=== PATIENT | female | born 1935 | race Caucasian/White ===

== ENCOUNTER 2017-04-01 08:40 | Outpatient (CLI) | payer MEDICARE, MEDICAID ==
[2017-04-01] VITALS (7 sets, daily range): BP systolic 129–139; BP diastolic 62–84; PULSE 82–97; TEMP 98.4–98.6
[~2017-04-01] VITALS: Ht 162.6 cm; Wt 56.8 kg
[~2017-04-01 08:40] MED LIST: ASPIRIN E.C. 8181 MG PO; BENTYL 10MG10 MG/CAP PO; CALCIUM 500 + D1 TA2 PO; CELEBREX 200MG200 MG PO; COUMADIN 5MG5 MG/TAB PO; COUMADIN 6MG6 MG/TAB PO; CRESTOR 10MG10 MG PO; CYMBALTA 30MG30 MG PO; CYMBALTA 60MG60 MG PO; FERROUS SULFAT325 M2 PO; FOSAMAX 70MG TA70 MG PO; GLUCOTROL 5M5 MG/TAB PO; LASIX 40MG TABL40 MG PO; LORTAB 5/500 501 TAB PO; MULTIPLE VITAMI1 TA5 PO; NEURONTIN100 MG/CAP PO; NEURONTIN300 MG/CAP PO; NEXIUM 40MG40 MG PO; NORCO 325 MG-7.1 TAB PO; NORVASC 5MG5 MG/TAB PO; SYNTHROID0.088 MG/T PO; TYLENOL 500MG500 MG PO; VANDAZOLE 0.75%70 GM VG; VITAMIN B-1000 MCG/T PO; ZESTRIL 10MG10 MG PO; ZETIA 10MG TAB10 MG PO
[2017-04-01] MEDS ORDERED: JANUVIA 100MG100 MG PO (09:42)
[2017-04-01] MEDS ORDERED: SYNTHROID0.1 MG/TAB PO (09:43)
[2017-04-01] MEDS ORDERED: GLUCOPHAGE500 MG/TAB PO (09:44)
[2017-04-01 10:05] LABS: MEAN CELL VOLUME 89 fl (80.0-100.0); MEAN CORPUSCULAR HGB CONC 32 g/dl (33.0-37.0); MEAN PLATELET VOLUME 9.4 fl (7.4-10.4); PLATELET COUNT 811 K/mm3 (130-400); RED BLOOD COUNT 3.78 M/mm3 (4.10-5.30); REDCELL DISTRIBUTION WIDTH-CV 16.7 % (11.5-14.5)
[2017-04-01] MEDS ORDERED: MIRALAX PA17 GM/Dose PO (10:12)
[2017-04-01] MEDS ORDERED: VESICARE10 MG PO (10:14)
[2017-04-01 10:15] LABS: HEMATOCRIT 33.5 % (37.0-47.0); HEMOGLOBIN 10.7 g/dl (12.5-16.0); MEAN CORPUSCULAR HEMOGLOBIN 28 pg (27.0-31.0); WHITE BLOOD COUNT 24.9 K/mm3 (4.8-10.8)
[2017-04-01] MEDS ORDERED: COUMADIN4 MG PO (10:16)
[2017-04-01] MEDS ORDERED: COUMADIN 2MG2 MG/TAB PO (10:16)
[2017-04-01 10:17] LABS: ADD PATHOLOGY DIFF REVIEW NO
[2017-04-01 11:27] LABS: BAND 19 % (0-10); BASOPHIL 1 % (0-2); NEUTROPHILS 70 % (42.0-75.2); TOTAL CELLS COUNTED 100
[2017-04-01 11:28] LABS: TOXIC GRANULATION PRESENT
[2017-04-01 11:31] LABS: PLATELET ESTIMATE INCREASED (NORMAL)
[2017-04-01 11:32] LABS: HYPOCHROMIA 2+
== END 2017-04-01 13:00 | disposition home or self-care (01) ==
LOC: SDCO 08:40
PROVIDERS: Pathology Anatomic Pathology & Clinical Pathology
DX: D47.3 Essential (hemorrhagic) thrombocythemia (principal); D64.9 Anemia, unspecified; D72.89 Other specified disorders of white blood cells; E11.9 Type 2 diabetes mellitus without complications; C91.10 Chronic lymphocytic leukemia of B-cell type not having achieved remission; E03.9 Hypothyroidism, unspecified; E78.5 Hyperlipidemia, unspecified; I38 Endocarditis, valve unspecified; I10 Essential (primary) hypertension; Z80.49 Family history of malignant neoplasm of other genital organs; I35.0 Nonrheumatic aortic (valve) stenosis; Z85.3 Personal history of malignant neoplasm of breast; Z92.21 Personal history of antineoplastic chemotherapy; Z90.10 Acquired absence of unspecified breast and nipple; G89.29 Other chronic pain; M54.5 Low back pain; R10.2 Pelvic and perineal pain; R63.4 Abnormal weight loss; Z79.01 Long term (current) use of anticoagulants
CPT/HCPCS: J2704; J3010

== ENCOUNTER 2017-04-11 16:02 | Inpatient (IN) | payer MEDICARE, MEDICAID ==
[~2017-04-11] VITALS: Ht 165.1 cm; Wt 57.1 kg
[~2017-04-11 16:02] MED LIST changes: +COUMADIN 2MG2 MG/TAB PO; +COUMADIN4 MG PO; +GLUCOPHAGE500 MG/TAB PO; +JANUVIA 100MG100 MG PO; +MIRALAX PA17 GM/Dose PO; +SYNTHROID0.1 MG/TAB PO; +VESICARE10 MG PO
[2017-04-11 16:55] VITALS: BP 123/50; PULSE 89; TEMP 98.2
[2017-04-11 20:03] VITALS: BP 145/87; PULSE 98; TEMP 99.3
[2017-04-11 20:40] LABS: MEAN CELL VOLUME 87 fl (80.0-100.0); MEAN CORPUSCULAR HGB CONC 32 g/dl (33.0-37.0); MEAN PLATELET VOLUME 9.6 fl (7.4-10.4); PLATELET COUNT 836 K/mm3 (130-400); RED BLOOD COUNT 3.26 M/mm3 (4.10-5.30); REDCELL DISTRIBUTION WIDTH-CV 16.6 % (11.5-14.5)
[2017-04-11 20:47] LABS: HEMATOCRIT 28.4 % (37.0-47.0); HEMOGLOBIN 9.1 g/dl (12.5-16.0); MEAN CORPUSCULAR HEMOGLOBIN 28 pg (27.0-31.0); PROTHROMBIN TIME 23.3 SECONDS (9.7-12.8)
[2017-04-11 20:48] LABS: CALCIUM 7.9 mg/dL (8.4-10.2); CREATININE, serum 0.88 mg/dL (0.52-1.25); POTASSIUM 3.5 mmol/L (3.4-5.0)
[2017-04-11 21:06] LABS: WHITE BLOOD COUNT 29.7 K/mm3 (4.8-10.8)
[2017-04-11 21:07] LABS: ADD PATHOLOGY DIFF REVIEW NO
[2017-04-11 21:16] LABS: BAND 4 % (0-10); METAMYELOCYTE 2 % (0-0); NEUTROPHILS 78 % (42.0-75.2); TOTAL CELLS COUNTED 100; TOXIC GRANULATION PRESENT
[2017-04-11 21:17] LABS: ANISOCYTOSIS 1+; HYPOCHROMIA 2+; POIKILOCYTOSIS 1+; POLYCHROMASIA 1+; ROULEAUX 2+
[2017-04-11 23:16] VITALS: BP 138/54; PULSE 95; TEMP 98.8
[2017-04-12 03:27] VITALS: BP 137/54; PULSE 86; TEMP 97.8
[2017-04-12 08:28] VITALS: BP 152/67; PULSE 91; TEMP 98.9
[2017-04-12 11:23] LABS: PH 5 (5-8); SQUAMOUS EPITHELIAL 0-2 /hpf; URINE APPEARANCE Clear; URINE BACTERIA None Seen /hpf; URINE BILIRUBIN Negative (NEGATIVE); URINE BLOOD Negative (NEGATIVE); URINE COLOR Yellow; URINE GLUCOSE Negative (NEGATIVE); URINE KETONE Negative (NEGATIVE); URINE RBC 0-2 /hpf; URINE UROBILINOGEN Negative (NEGATIVE)
[2017-04-12 11:32] VITALS: BP 163/76; PULSE 93; TEMP 98.6
[2017-04-12 12:41] LABS: MEAN CELL VOLUME 87 fl (80.0-100.0); MEAN CORPUSCULAR HGB CONC 33 g/dl (33.0-37.0); MEAN PLATELET VOLUME 9.6 fl (7.4-10.4); PLATELET COUNT 780 K/mm3 (130-400); RED BLOOD COUNT 2.86 M/mm3 (4.10-5.30); REDCELL DISTRIBUTION WIDTH-CV 16.7 % (11.5-14.5); RETIC % 1.5 % (0.5-3.52)
[2017-04-12 12:43] LABS: INR 1.9 (0.8-3.0); PROTHROMBIN TIME 21.4 SECONDS (9.7-12.8)
[2017-04-12 12:45] LABS: HEMATOCRIT 24.9 % (37.0-47.0); HEMOGLOBIN 8.1 g/dl (12.5-16.0); MEAN CORPUSCULAR HEMOGLOBIN 28 pg (27.0-31.0); WHITE BLOOD COUNT 30.3 K/mm3 (4.8-10.8)
[2017-04-12 12:46] LABS: ADD PATHOLOGY DIFF REVIEW NO
[2017-04-12 13:20] LABS: BAND 3 % (0-10); NEUTROPHILS 81 % (42.0-75.2); TOTAL CELLS COUNTED 100
[2017-04-12 13:21] LABS: HYPOCHROMIA 1+; PLATELET ESTIMATE INCREASED (NORMAL)
[2017-04-12 13:22] LABS: ROULEAUX 1+
[2017-04-12 16:59] VITALS: BP 162/58; PULSE 86; TEMP 98.9
[2017-04-12 20:25] VITALS: BP 139/49; PULSE 81; TEMP 98.5
[2017-04-12 23:09] VITALS: BP 146/61; PULSE 85; TEMP 98.4
[2017-04-13 03:15] VITALS: BP 134/57; PULSE 72; TEMP 98.7
[2017-04-13 07:21] LABS: MEAN CELL VOLUME 89 fl (80.0-100.0); MEAN CORPUSCULAR HGB CONC 32 g/dl (33.0-37.0); MEAN PLATELET VOLUME 9.6 fl (7.4-10.4); PLATELET COUNT 773 K/mm3 (130-400); REDCELL DISTRIBUTION WIDTH-CV 16.9 % (11.5-14.5)
[2017-04-13 07:30] LABS: ADD PATHOLOGY DIFF REVIEW NO; HEMATOCRIT 23.9 % (37.0-47.0); HEMOGLOBIN 7.6 g/dl (12.5-16.0); MEAN CORPUSCULAR HEMOGLOBIN 28 pg (27.0-31.0); WHITE BLOOD COUNT 23.9 K/mm3 (4.8-10.8)
[2017-04-13 08:05] LABS: INR 1.8 (0.8-3.0); PROTHROMBIN TIME 20.7 SECONDS (9.7-12.8)
[2017-04-13 08:14] VITALS: BP 159/48; PULSE 77; TEMP 98.7
[2017-04-13 08:21] LABS: ANISOCYTOSIS 1+; BAND 26 % (0-10); EOSINOPHIL 1 % (0-4); METAMYELOCYTE 1 % (0-0); MYELOCYTE 1 % (0-0); NEUTROPHILS 53 % (42.0-75.2); PLATELET ESTIMATE INCREASED (NORMAL); TOTAL CELLS COUNTED 100
[2017-04-13 08:22] LABS: HYPOCHROMIA 1+
[2017-04-13 10:26] LABS: CALCIUM 7.2 mg/dL (8.4-10.2); CREATININE, serum 0.66 mg/dL (0.52-1.25)
[2017-04-13 12:00] VITALS: BP 183/86; PULSE 85; TEMP 97.6
[2017-04-13 15:05] VITALS: BP 167/55; PULSE 85; TEMP 98.5
[2017-04-13 20:10] VITALS: BP 158/82; PULSE 87; TEMP 98.5
[2017-04-14] VITALS (10 sets, daily range): BP systolic 155–193; BP diastolic 55–74; PULSE 73–85; TEMP 97.9–98.7
[2017-04-14 06:56] LABS: MEAN CELL VOLUME 88 fl (80.0-100.0); MEAN CORPUSCULAR HGB CONC 32 g/dl (33.0-37.0); MEAN PLATELET VOLUME 9.5 fl (7.4-10.4); PLATELET COUNT 782 K/mm3 (130-400); RED BLOOD COUNT 2.68 M/mm3 (4.10-5.30); WHITE BLOOD COUNT 19.7 K/mm3 (4.8-10.8)
[2017-04-14 07:01] LABS: ADD PATHOLOGY DIFF REVIEW NO; HEMATOCRIT 23.7 % (37.0-47.0); HEMOGLOBIN 7.5 g/dl (12.5-16.0); MEAN CORPUSCULAR HEMOGLOBIN 28 pg (27.0-31.0)
[2017-04-14 07:03] LABS: CREATININE, serum 0.6 mg/dL (0.52-1.25)
[2017-04-14 07:04] LABS: POTASSIUM 2.5 mmol/L (3.4-5.0)
[2017-04-14 07:09] LABS: INR 1.5 (0.8-3.0); PROTHROMBIN TIME 17.2 SECONDS (9.7-12.8)
[2017-04-14 08:56] LABS: ANISOCYTOSIS 2+; BAND 19 % (0-10); EOSINOPHIL 3 % (0-4); MYELOCYTE 1 % (0-0); NEUTROPHILS 64 % (42.0-75.2); PLATELET ESTIMATE INCREASED (NORMAL); TOTAL CELLS COUNTED 100
[2017-04-14 08:57] LABS: OVALOCYTES 1+
[2017-04-15] VITALS (11 sets, daily range): BP systolic 158–177; BP diastolic 58–73; PULSE 69–80; TEMP 97.5–99.1
[2017-04-15 06:34] LABS: MEAN CELL VOLUME 89 fl (80.0-100.0); MEAN CORPUSCULAR HGB CONC 32 g/dl (33.0-37.0); MEAN PLATELET VOLUME 9.3 fl (7.4-10.4); PLATELET COUNT 741 K/mm3 (130-400); RED BLOOD COUNT 2.98 M/mm3 (4.10-5.30); REDCELL DISTRIBUTION WIDTH-CV 16.6 % (11.5-14.5); WHITE BLOOD COUNT 18.7 K/mm3 (4.8-10.8)
[2017-04-15 06:38] LABS: HEMATOCRIT 26.6 % (37.0-47.0); HEMOGLOBIN 8.5 g/dl (12.5-16.0); MEAN CORPUSCULAR HEMOGLOBIN 29 pg (27.0-31.0)
[2017-04-15 06:43] LABS: INR 1.4 (0.8-3.0); PROTHROMBIN TIME 15.4 SECONDS (9.7-12.8)
[2017-04-15 06:54] LABS: CALCIUM 7.2 mg/dL (8.4-10.2); CREATININE, serum 0.61 mg/dL (0.52-1.25); POTASSIUM 3.7 mmol/L (3.4-5.0)
[2017-04-15 07:06] LABS: BAND 18 % (0-10); EOSINOPHIL 3 % (0-4); METAMYELOCYTE 3 % (0-0); MYELOCYTE 2 % (0-0); NEUTROPHILS 56 % (42.0-75.2); TOTAL CELLS COUNTED 100
[2017-04-15 07:08] LABS: HYPOCHROMIA 1+
[2017-04-15 07:10] LABS: ANISOCYTOSIS 1+; PLATELET ESTIMATE INCREASED (NORMAL)
[2017-04-15 07:11] LABS: TOXIC GRANULATION PRESENT
[2017-04-15 07:13] LABS: ADD PATHOLOGY DIFF REVIEW NO
[2017-04-16 02:59] VITALS: BP 164/77; PULSE 81; TEMP 97.8
[2017-04-16 06:44] LABS: MEAN CELL VOLUME 90 fl (80.0-100.0); MEAN CORPUSCULAR HGB CONC 32 g/dl (33.0-37.0); MEAN PLATELET VOLUME 9.2 fl (7.4-10.4); PLATELET COUNT 712 K/mm3 (130-400); RED BLOOD COUNT 2.99 M/mm3 (4.10-5.30); REDCELL DISTRIBUTION WIDTH-CV 16.7 % (11.5-14.5); WHITE BLOOD COUNT 19.2 K/mm3 (4.8-10.8)
[2017-04-16 06:45] LABS: ADD PATHOLOGY DIFF REVIEW NO; HEMATOCRIT 26.9 % (37.0-47.0); HEMOGLOBIN 8.5 g/dl (12.5-16.0); MEAN CORPUSCULAR HEMOGLOBIN 28 pg (27.0-31.0)
[2017-04-16 07:25] LABS: BAND 29 % (0-10); BASOPHIL 1 % (0-2); EOSINOPHIL 2 % (0-4); METAMYELOCYTE 1 % (0-0); MYELOCYTE 4 % (0-0); NEUTROPHILS 47 % (42.0-75.2); TOTAL CELLS COUNTED 100
[2017-04-16 07:26] LABS: HYPOCHROMIA 2+; PLATELET ESTIMATE INCREASED (NORMAL)
[2017-04-16 07:27] LABS: ANISOCYTOSIS 1+
[2017-04-16 08:00] VITALS: BP 166/68; PULSE 79; TEMP 98.2
[2017-04-16 12:22] VITALS: BP 185/81; PULSE 86; TEMP 97.4
[2017-04-16 15:23] VITALS: BP 180/60; PULSE 82; TEMP 97.6
[2017-04-16 20:08] VITALS: BP 161/66; PULSE 86; TEMP 98.4
[2017-04-16 23:32] VITALS: BP 156/65; PULSE 73; TEMP 97.8
[2017-04-17 03:58] VITALS: BP 167/58; PULSE 77; TEMP 97.5
[2017-04-17 06:37] LABS: MEAN CELL VOLUME 88 fl (80.0-100.0); MEAN CORPUSCULAR HGB CONC 32 g/dl (33.0-37.0); MEAN PLATELET VOLUME 9.3 fl (7.4-10.4); PLATELET COUNT 767 K/mm3 (130-400); RED BLOOD COUNT 3.19 M/mm3 (4.10-5.30); REDCELL DISTRIBUTION WIDTH-CV 16.7 % (11.5-14.5)
[2017-04-17 06:40] LABS: HEMATOCRIT 28.1 % (37.0-47.0); MEAN CORPUSCULAR HEMOGLOBIN 28 pg (27.0-31.0); WHITE BLOOD COUNT 21.5 K/mm3 (4.8-10.8)
[2017-04-17 06:44] LABS: ADD PATHOLOGY DIFF REVIEW NO
[2017-04-17 06:55] LABS: CALCIUM 7.7 mg/dL (8.4-10.2); CREATININE, serum 0.58 mg/dL (0.52-1.25)
[2017-04-17 07:01] LABS: POTASSIUM 2.9 mmol/L (3.4-5.0)
[2017-04-17 07:05] LABS: BAND 22 % (0-10); EOSINOPHIL 3 % (0-4); MYELOCYTE 3 % (0-0); NEUTROPHILS 48 % (42.0-75.2); PLATELET ESTIMATE INCREASED (NORMAL); TOTAL CELLS COUNTED 100
[2017-04-17 07:07] LABS: ANISOCYTOSIS 1+
[2017-04-17 08:16] VITALS: BP 192/63; PULSE 82; TEMP 98.4
[2017-04-17 08:23] LABS: MAGNESIUM 1.1 mg/dL (1.6-2.3)
[2017-04-17 10:06] VITALS: BP 152/63
[2017-04-17 11:42] VITALS: BP 156/64; PULSE 93; TEMP 98
[2017-04-17 15:48] VITALS: BP 142/53; PULSE 91; TEMP 97.7
[2017-04-17 19:58] VITALS: BP 164/57; PULSE 91; TEMP 98.4
[2017-04-18 00:07] VITALS: BP 172/61; PULSE 89; TEMP 99.2
[2017-04-18 03:52] VITALS: BP 163/68; PULSE 79; TEMP 97.4
[2017-04-18 06:19] LABS: MEAN CELL VOLUME 89 fl (80.0-100.0); MEAN CORPUSCULAR HGB CONC 32 g/dl (33.0-37.0); MEAN PLATELET VOLUME 9.4 fl (7.4-10.4); PLATELET COUNT 708 K/mm3 (130-400); RED BLOOD COUNT 3.01 M/mm3 (4.10-5.30); WHITE BLOOD COUNT 19.5 K/mm3 (4.8-10.8)
[2017-04-18 06:23] LABS: ADD PATHOLOGY DIFF REVIEW NO; HEMATOCRIT 26.9 % (37.0-47.0); HEMOGLOBIN 8.5 g/dl (12.5-16.0); MEAN CORPUSCULAR HEMOGLOBIN 28 pg (27.0-31.0)
[2017-04-18 06:34] LABS: CALCIUM 7.6 mg/dL (8.4-10.2); CREATININE, serum 0.65 mg/dL (0.52-1.25); MAGNESIUM 1.8 mg/dL (1.6-2.3); POTASSIUM 3.7 mmol/L (3.4-5.0)
[2017-04-18 06:40] LABS: INR 1.3 (0.8-3.0); PROTHROMBIN TIME 14.3 SECONDS (9.7-12.8)
[2017-04-18 07:17] LABS: BAND 15 % (0-10); BASOPHIL 1 % (0-2); METAMYELOCYTE 2 % (0-0); MYELOCYTE 1 % (0-0); NEUTROPHILS 56 % (42.0-75.2); TOTAL CELLS COUNTED 100
[2017-04-18 07:19] LABS: PLATELET ESTIMATE INCREASED (NORMAL)
[2017-04-18 07:50] VITALS: BP 187/87; PULSE 78; TEMP 96.9
[2017-04-18 11:04] VITALS: BP 157/76; PULSE 109; TEMP 97.9
[2017-04-18 15:40] VITALS: BP 160/65; PULSE 104; TEMP 97.9
[2017-04-18 20:48] VITALS: BP 183/77; PULSE 93; TEMP 97.7
[2017-04-19] VITALS (410 sets, daily range): BP systolic 95–168; BP diastolic 47–70; PULSE 63–85; TEMP 97.8–98.5; O2SAT 86–100
[2017-04-19 05:49] LABS: MEAN CELL VOLUME 90 fl (80.0-100.0); MEAN CORPUSCULAR HGB CONC 32 g/dl (33.0-37.0); MEAN PLATELET VOLUME 9.1 fl (7.4-10.4); PLATELET COUNT 724 K/mm3 (130-400); RED BLOOD COUNT 3.18 M/mm3 (4.10-5.30); REDCELL DISTRIBUTION WIDTH-CV 17.1 % (11.5-14.5); WHITE BLOOD COUNT 18.5 K/mm3 (4.8-10.8)
[2017-04-19 05:52] LABS: HEMATOCRIT 28.5 % (37.0-47.0); HEMOGLOBIN 9.1 g/dl (12.5-16.0); MEAN CORPUSCULAR HEMOGLOBIN 29 pg (27.0-31.0)
[2017-04-19 05:53] LABS: ADD PATHOLOGY DIFF REVIEW NO
[2017-04-19 06:04] LABS: CALCIUM 8.3 mg/dL (8.4-10.2); CREATININE, serum 0.79 mg/dL (0.52-1.25); MAGNESIUM 1.6 mg/dL (1.6-2.3); POTASSIUM 3.5 mmol/L (3.4-5.0)
[2017-04-19 06:13] LABS: ANISOCYTOSIS 1+; BAND 20 % (0-10); EOSINOPHIL 1 % (0-4); METAMYELOCYTE 3 % (0-0); NEUTROPHILS 58 % (42.0-75.2); PLATELET ESTIMATE INCREASED (NORMAL); TOTAL CELLS COUNTED 100
[2017-04-20 04:45] VITALS: BP 197/57; PULSE 62; TEMP 97.6
[2017-04-20 07:15] VITALS: BP 175/62; PULSE 70; TEMP 97.9
[2017-04-20 11:39] VITALS: BP 150/66; PULSE 77; TEMP 98.2
[2017-04-20 16:32] VITALS: BP 176/61; PULSE 83; TEMP 98.1
[2017-04-20 20:30] VITALS: BP 154/54; PULSE 91; TEMP 97.8
[2017-04-20 23:47] VITALS: BP 158/51; PULSE 83; TEMP 98.3
[2017-04-21 04:29] VITALS: BP 184/55; PULSE 83; TEMP 98.2
[2017-04-21 07:21] LABS: ADD PATHOLOGY DIFF REVIEW NO
[2017-04-21 07:25] LABS: MEAN CELL VOLUME 90 fl (80.0-100.0); MEAN CORPUSCULAR HGB CONC 32 g/dl (33.0-37.0); MEAN PLATELET VOLUME 9.8 fl (7.4-10.4); PLATELET COUNT 751 K/mm3 (130-400); RED BLOOD COUNT 3.23 M/mm3 (4.10-5.30)
[2017-04-21 07:26] LABS: HEMATOCRIT 29.1 % (37.0-47.0); HEMOGLOBIN 9.3 g/dl (12.5-16.0); MEAN CORPUSCULAR HEMOGLOBIN 29 pg (27.0-31.0); WHITE BLOOD COUNT 22.3 K/mm3 (4.8-10.8)
[2017-04-21 07:38] LABS: CALCIUM 9.3 mg/dL (8.4-10.2); CREATININE, serum 0.79 mg/dL (0.52-1.25); MAGNESIUM 1.7 mg/dL (1.6-2.3); POTASSIUM 4.3 mmol/L (3.4-5.0)
[2017-04-21 07:41] LABS: BAND 24 % (0-10); BASOPHIL 1 % (0-2); EOSINOPHIL 1 % (0-4); NEUTROPHILS 58 % (42.0-75.2); TOTAL CELLS COUNTED 100
[2017-04-21 07:45] LABS: PLATELET ESTIMATE INCREASED (NORMAL)
[2017-04-21 07:51] LABS: ANISOCYTOSIS 1+; POLYCHROMASIA 1+
[2017-04-21 08:13] VITALS: BP 144/81; PULSE 104; TEMP 98.3
[2017-04-21 11:53] VITALS: BP 138/62; PULSE 107; TEMP 98.3
[2017-04-21 15:24] VITALS: BP 139/52; PULSE 80; TEMP 98.2
[2017-04-21 19:44] VITALS: BP 158/59; PULSE 79; TEMP 98.2
[2017-04-21 23:19] VITALS: BP 168/54; PULSE 74; TEMP 98.3
[2017-04-22 03:29] VITALS: BP 167/65; PULSE 74; TEMP 98.1
[2017-04-22 06:53] LABS: CALCIUM 9.1 mg/dL (8.4-10.2); CREATININE, serum 0.92 mg/dL (0.52-1.25)
[2017-04-22 07:18] VITALS: BP 187/65; PULSE 77; TEMP 98
[2017-04-22 09:00] VITALS: BP 151/61
[2017-04-22] MEDS ORDERED: TOPROL XL 50MG50 MG PO (09:10)
[2017-04-22] MEDS ORDERED: ZESTRIL 20MG TA20 MG PO (09:11)
[2017-04-22] MEDS ORDERED: ALDACTONE50 MG PO (09:12)
[2017-04-22] MEDS ORDERED: LASIX 40MG TABL40 MG PO (09:15)
[2017-04-22] MEDS ORDERED: ZOFRAN 4MG T4 MG/TAB PO (09:16)
[2017-04-22] MEDS ORDERED: AMOXICILLIN 8751 TAB PO (09:17)
[2017-04-22] MEDS ORDERED: MAG-OX 400400 MG/TAB PO (09:18)
[2017-04-22] MEDS ORDERED: HCTZ 25MG TAB25 MG PO (09:18)
== END 2017-04-22 12:35 | disposition home health service (06) | DRG 371 ==
LOC: MEDICAL 16:11 → ICU 04-19 06:55 → MEDICAL 04-19 14:26
PROVIDERS: Family Medicine; Internal Medicine; Internal Medicine Cardiovascular Disease; Physician Assistant
PROC: 0K9P30Z Drainage of Left Hip Muscle with Drainage Device, Percutaneous Approach (ICD-10-PCS; principal; 2017-04-15)
DX: K68.12 Psoas muscle abscess (principal); E43 Unspecified severe protein-calorie malnutrition; C91.11 Chronic lymphocytic leukemia of B-cell type in remission; E87.1 Hypo-osmolality and hyponatremia; B95.61 Methicillin susceptible Staphylococcus aureus infection as the cause of diseases classified elsewhere; E87.6 Hypokalemia; E83.42 Hypomagnesemia; S32.10XD Unspecified fracture of sacrum, subsequent encounter for fracture with routine healing; S32.592D Other specified fracture of left pubis, subsequent encounter for fracture with routine healing; S32.591D Other specified fracture of right pubis, subsequent encounter for fracture with routine healing; W18.30XD Fall on same level, unspecified, subsequent encounter; Z85.3 Personal history of malignant neoplasm of breast; I10 Essential (primary) hypertension; E11.9 Type 2 diabetes mellitus without complications; Z95.820 Peripheral vascular angioplasty status with implants and grafts; I48.0 Paroxysmal atrial fibrillation; Z86.711 Personal history of pulmonary embolism; Z79.01 Long term (current) use of anticoagulants; I35.0 Nonrheumatic aortic (valve) stenosis; D64.9 Anemia, unspecified
CPT/HCPCS: 99232-AI; 99233-AI; 99239; C1729; C1751; C1894; J0360; J1644; J1815; J1940; J2270; J2405; J2543; J3370; J3430; J3475; J3480; J7030; J7050; J7060; P9016; Q9967